=== PATIENT | male | born 1985 | race Caucasian/White ===

== ENCOUNTER 2021-07-19 16:37 | Emergency (ER) | payer OTHER ==
[2021-07-19] MEDS ORDERED: Cephalexin 500 MG Cap PO ONE (16:38)
[2021-07-19 17:34] LABS: ANION GAP 14.3 mEq/L (7-13); CHLORIDE,CL 102 mmol/L (98-107); SODIUM,NA 140 mmol/L (136-145)
[2021-07-19] MEDS ORDERED: Cephalexin 500 MG Cap ONE (17:50)
== END 2021-07-19 18:00 | disposition home or self-care (01) ==
LOC: DL.ED 16:37
DX: L73.1 Pseudofolliculitis barbae (principal)
CPT/HCPCS: 36415; 80053; 83605; 85025; 85379; 99283; A9270